=== PATIENT | male | born 1980 ===

== ENCOUNTER 2021-07-31 10:07 | Day surgery (SDC) | payer BC ==
[2021-07-30 10:18] VITALS: BMI 38.0
[~2021-07-31 10:07] MED LIST: HEPARIN SODIUM,PORCINE/PF 5,000 UNIT/0.5 ML SYRINGE SQ PRN; LACTATED RINGERS 1,000 ML IV SCH; MIDAZOLAM 2 MG/2 ML VIAL IV PRN; ONDANSETRON 4 MG/2 ML VIAL IVP ONE; SCOPOLAMINE 1.5MG/72HR PATCH TRANSDERM ONE; ceFAZolin 3 GM in SODIUM CHLORIDE 0.9% 100 ML IVPB PRN
[2021-07-31] MEDS ORDERED: LIDOCAINE 1% (10MG/ML) FOR IV START INTRADERMA ONE (10:57)
--- NOTE | 2021-07-31 11:05 | P.GSHP ---
History of Present Illness H&P Date: 07/31/21 CHIEF COMPLAINT: Cholecystitis HISTORY OF PRESENT ILLNESS: The patient is a 41-year-old male who presents with history of epigastric including right upper quadrant abdominal pain. He underwent diagnostic studies for the gallbladder. Separately his clinical picture was consistent with cholecystitis. Now he presents for surgical intervention. PAST MEDICAL HISTORY: Please see list PAST SURGICAL HISTORY: Please see list MEDICATIONS: Please see list ALLERGIES: Denies. SOCIAL HISTORY: No illicit drug use or recent tobacco use FAMILY HISTORY: Pertinent for gallbladder disease REVIEW OF ORGAN SYSTEMS: CONSTITUTIONAL: No reports of fevers or chills. HEENT: Denies any troubles with the vision or hearing. PHYSICAL EXAM: VITAL SIGNS: Afebrile vital signs stable GENERAL: Well-developed pleasant male in no acute distress. HEENT: No scleral icterus. Extraocular movements grossly intact. Moist buccal mucosa. NECK: Supple without lymphadenopathy. CHEST: Unlabored respirations. Equal bilateral excursions. CARDIOVASCULAR: Regular rate regular rhythm rhythm. Distal 2+ pulses. ABDOMEN: Soft, nondistended. Tender along the epigastrium and right upper quadrant. MUSCULOSKELETAL: No clubbing, cyanosis, or edema. NEURO : No focal or lateralizing signs. Cranial nerves II-12 within normal limits. PSYCH: Alert and oriented to person, place and time. SKIN: Well perfused. Good skin turgor. ASSESSMENT: 1. Epigastric and right upper quadrant abdominal pain 2. Chronic cholecystitis PLAN: 1. Will need a robotic cholecystectomy possible open. Benefits and risks were described. 2. Heparin for DVT prophylaxis 5000 units. 3. Antibiotic prophylaxis. Past Medical History Past Medical History: Hyperlipidemia, Hypertension, Sleep Apnea/CPAP/BIPAP History of Any Multi-Drug Resistant Organisms: None Reported Past Surgical History: Orthopedic Surgery Additional Past Surgical History / Comment(s): Back surgery with fusion. [place] teeth. Past Anesthesia/Blood Transfusion Reactions: No Reported Reaction Past Psychological History: No Psychological Hx Reported Smoking Status: Never smoker Past Alcohol Use History: Occasional Additional Past Alcohol Use History / Comment(s): Hx. of chewing tabacco. Has quit for several years. Past Drug Use History: None Reported - Past Family History Mother Family Medical History: No Reported History Medications and Allergies Home Medications Medication Instructions Recorded Confirmed Type Bisoprolol-Hctz 10-6.25 mg [Ziac 1 tab PO DAILY 07/30/21 07/30/21 History 10-6.25 MG] Omeprazole [PriLOSEC] 20 mg PO AC-BRKFST 07/30/21 07/30/21 History Rosuvastatin [Crestor] 10 mg PO HS 07/30/21 07/30/21 History Sulfamethox-Tmp 800-160Mg [Bactrim 1 tab PO BID 07/30/21 07/30/21 History DS 800-160 mg] lisinopriL 10 mg PO DAILY 07/30/21 07/30/21 History Allergies Allergy/AdvReac Type Severity Reaction Status Date / Time Corticosteroids Allergy Chorioretin Verified 07/30/21 10:21 (Glucocorticoids) opathy Surgical - Exam Vital Signs Temp Pulse Resp BP Pulse Ox 97 F L 55 L 20 132/77 97 07/31/21 10:55 07/31/21 10:55 07/31/21 10:55 07/31/21 10:55 07/31/21 10:55
[2021-07-31] MEDS ORDERED: GABAPENTIN 300 MG CAP PO PRN (11:06)
[2021-07-31] MEDS ORDERED: ACETAMINOPHEN TAB 500 MG TAB PO PRN (11:06)
[2021-07-31] MEDS ORDERED: MELOXICAM 7.5 MG TAB PO PRN (11:06)
[2021-07-31] MEDS ORDERED: TAMSULOSIN 0.4 MG CAP.ER.24H PO PRN (11:06)
[2021-07-31] MEDS ORDERED: INDOCYANINE GREEN 25 MG VIAL IV STA (11:07)
[2021-07-31 11:12] LABS: HCT 45.9 % (39.0-53.0); HGB 16.1 gm/dL (13.0-17.5); MCH 32.9 pg (25.0-35.0); MCHC 35.1 g/dL (31.0-37.0); MCV 93.7 fL (80.0-100.0); Mean Platelet Volume 7.8; Platelet Count 247 k/uL (150-450); RDW 12.5 % (11.5-15.5); WBC 6.1 k/uL (3.8-10.6)
[2021-07-31 11:22] LABS: ALT 24 U/L (4-49); AST 25 U/L (17-59); African American GFR (CKD) >90 (>60 ml/min/1.73 sqM); Alkaline Phosphatase 59 U/L (38-126); Anion Gap 10 mmol/L; Blood Urea Nitrogen 14 mg/dL (9-20); Calcium 9.4 mg/dL (8.4-10.2); Carbon Dioxide 23 mmol/L (22-30); Chloride 107 mmol/L (98-107); Glucose 98 mg/dL (74-99); Non-African American GFR(CKD) 79 (>60 ml/min/1.73 sqM); Potassium 4.5 mmol/L (3.5-5.1); Sodium 140 mmol/L (137-145); Total Protein 8.3 g/dL (6.3-8.2)
[2021-07-31] MEDS ORDERED: ROCURONIUM 10 MG/ML (5 ML VIAL) IV ONE (12:25)
[2021-07-31] MEDS ORDERED: NEOSTIGMINE 1 MG/ML 10 ML VIAL ONE (12:25)
[2021-07-31] MEDS ORDERED: fentaNYL (PF) 50 MCG/ML 2 ML AMP ONE (12:25)
[2021-07-31] MEDS ORDERED: HYDROmorphone (PF) 1 MG/ML ONE (12:25)
[2021-07-31] MEDS ORDERED: LIDOCAINE 1% INJ 10MG/ML (20 ML MDV) ONE (12:25)
[2021-07-31] MEDS ORDERED: PHENYLEPHRINE-0.9% NACL SYG 1,000 MCG/10 ML SYRINGE ONE (12:25)
[2021-07-31] MEDS ORDERED: MIDAZOLAM 2 MG/2 ML VIAL ONE (12:25)
[2021-07-31] MEDS ORDERED: SUCCINYLCHOLINE CHLORIDE VIAL 200 MG/10 ML VIAL IV ONE (12:25)
[2021-07-31] MEDS ORDERED: GLYCOPYRROLATE 0.2 MG/ML 2 ML VIAL ONE (12:25)
[2021-07-31] MEDS ORDERED: PROPOFOL 10 MG/ML 20 ML VIAL IV ONE (12:25)
[2021-07-31] MEDS ORDERED: BUPIVACAIN-EPI 0.25%-1:200,000 30 ML VIAL SQ ONE (12:52)
[2021-07-31] MEDS ORDERED: LACTATED RINGERS 1,000 ML IV ONE (13:25)
[2021-07-31 13:34] VITALS: TEMP 97.4
[2021-07-31] MEDS: HYDROmorphone 0.5 MG/0.5 ML SYRINGE IVP PRN ×3 (13:38→14:00)
[2021-07-31] MEDS ORDERED: KETOROLAC 15 MG/ML 1 ML VIAL IVP ONE (14:10)
--- NOTE | 2021-07-31 14:19 | P.OP ---
Date of Procedure: 07/31/21 Description of Procedure: SURGEON: JENNIFER COLON MD PREOPERATIVE DIAGNOSES: 1. Symptomatic gallstones 2. Right upper quadrant abdominal pain 3. Hypertensive heart disease 4. Morbid obesity due to excess calories, BMI 38.3 5. Hyperlipidemia 6. Obstructive sleep apnea POSTOPERATIVE DIAGNOSES: 1. Symptomatic gallstones 2. Right upper quadrant abdominal pain 3. Hypertensive heart disease 4. Morbid obesity due to excess calories, BMI 38.3 5. Hyperlipidemia 6. Obstructive sleep apnea 7. Gastritis OPERATION: 1. Robotic-assisted da Elicia Xi laparoscopic cholecystectomy, multiport with FIREFLY 2. Intraoperative esophagogastroduodenoscopy (see separate operative report) ESTIMATED BLOOD LOSS: 5 mL. SPECIMENS REMOVED: Gallbladder and antrum COMPLICATIONS: None. OPERATIVE FINDINGS: 1. Mild hepatomegaly INDICATIONS: The patient is a 41-year-old male who presents with symptomatic gallstones. Robotic assisted laparoscopic approach was described. Benefits and risks of the procedure including but not limited to bleeding, infection, injury to the biliary tree was described. Informed consent was obtained. DESCRIPTION OF PROCEDURE: Patient was brought to the operating room, placed in supine position. After general induction, the abdomen had been prepped and draped in standard sterile fashion. The robotic da Elicia XI system was primed. After a timeout protocol was performed, the patient had been prepped and draped in standard sterile fashion. The patient was injected with indocyanine green. A 5 mm 0 degrees laparoscopic trocar entry was performed along the left upper quadrant. The abdomen insufflated to 15 mmHg pressure which was tolerated well. Diagnostic laparoscopy demonstrated no injury to bowel viscera or mesentery. The liver surface was unremarkable. Next, two 8 mm robotic ports were placed along the right upper abdomen. The camera 8-mm port was maintained along the epigastrium. Another 8 mm port was placed along the left upper abdominal wall after exchanging the 5 mm port. Please note that the ports were placed at least 10 to 15 cm away from the target anatomy of the gallbladder. The robot was docked along the left lateral abdomen. The patient was repositioned in reverse Trendelenburg position. Using a grasper for arm 3, a grasper for arm 4, including hook cautery for arm 1, the robotic system was docked and primed as described. Instruments were interchanged by the resident care assistant including hook cautery, Bovie cautery and clip appliers. I had sat at the console. Next attention was brought to the infundibulum and cystic structures. The infundibulum and cystic duct were dissected free from surrounding tissues. The cystic duct was isolated. FIREFLY was used to identify the cystic artery and cystic structures. A critical view of safety was obtained. Large PLASTIC clips were used throughout the entire case. Using a clip maintenance mechanic 2nd shift, 2 clips were placed at the junction of the infundibulum and cystic duct. The cystic duct was divided between clips. Next, the cystic artery was similarly clipped and cauterized. Electro-Bovie cautery was used to remove the gallbladder from the hepatic fossa. Hemostasis was checked and found to be adequate. The robot was undocked. I re-scrubbed into the case. Using a 10 mm Endo Catch bag via the left upper quadrant incision, the specimen was removed from the abdominal cavity. All pneumoperitoneum instruments were evacuated from the abdominal cavity. The incisions were reapproximated using 4-0 Monocryl in an interrupted subcuticular fashion. Fascial defects were less than 8 mm in size. Please note along the trocar sites, local anesthetic was placed as a field block prior to insertion of all instruments. Liquid glue was applied to the skin. I went to the head of the bed to perform an intraoperative upper endoscopy. Please see separate operative report. At the end of the procedure needle, sponge, and instrument count had been verified correct by the surgical sales representative. The patient was transferred to postanesthesia care unit in stable condition. Intraoperative films were shared with the patient's family. Plan - Discharge Summary Discharge Rx Participant: Yes New Discharge Prescriptions: New Simethicone [Gas-X] 125 mg PO AC-TID PRN #20 capsule PRN Reason: Pain Ibuprofen [Motrin] 600 mg PO Q8HR PRN #30 tab PRN Reason: Pain Acetaminophen Tab [Tylenol Tab] 1,000 mg PO Q6HR PRN #30 tablet PRN Reason: Pain Continue Bisoprolol-Hctz 10-6.25 mg [Ziac 10-6.25 MG] 1 tab PO DAILY Sulfamethox-Tmp 800-160Mg [Bactrim DS 800-160 mg] 1 tab PO BID Rosuvastatin [Crestor] 10 mg PO HS Omeprazole [PriLOSEC] 20 mg PO AC-BRKFST lisinopriL 10 mg PO DAILY Discharge Medication List Bisoprolol-Hctz 10-6.25 mg [Ziac 10-6.25 MG] 1 tab PO DAILY 07/30/21 [History] Omeprazole [PriLOSEC] 20 mg PO AC-BRKFST 07/30/21 [History] Rosuvastatin [Crestor] 10 mg PO HS 07/30/21 [History] Sulfamethox-Tmp 800-160Mg [Bactrim DS 800-160 mg] 1 tab PO BID 07/30/21 [History] lisinopriL 10 mg PO DAILY 07/30/21 [History] Acetaminophen Tab [Tylenol Tab] 1,000 mg PO Q6HR PRN #30 tablet 07/31/21 [Rx] Ibuprofen [Motrin] 600 mg PO Q8HR PRN #30 tab 07/31/21 [Rx] Simethicone [Gas-X] 125 mg PO AC-TID PRN #20 capsule 07/31/21 [Rx] Follow up Appointment(s)/Referral(s): Jennifer Colon MD [STAFF PHYSICIAN] - 08/07/21 (Telehealth) Patient Instructions/Handouts: *[facility] - Laparoscopic Cholecystectomy Discharge Instructions, *[facility] - Managing Your Pain After Surgery Without Opioids, *[facility] - (Anesthesia) Discharge Instructions Outpatient Surgery, Low Fat Diet (DC) Discharge Disposition: HOME SELF-CARE
--- NOTE | 2021-07-31 14:21 | P.PCN ---
Date of Procedure: 07/31/21 Description of Procedure: PREOPERATIVE DIAGNOSIS: Gastroesophageal reflux disease. Morbid obesity. POSTOPERATIVE DIAGNOSIS: Morbid obesity. Gastritis. Gastroesophageal reflux disease. Foreign body OPERATION: Esophagogastroduodenoscopy with biopsies along antrum. SURGEON: Jennifer Colon MD ANESTHESIA: GETA. INDICATIONS: The patient is a 41-year-old male who presents with reflux disease. Benefits and risks of the procedure were described. Informed consent was obtained. DESCRIPTION: After completion of his cholecystectomy, I went to the head of the bed. An Olympus gastroscope was passed along the posterior oropharynx down to the distal esophagus where the squamocolumnar junction was encountered at 42 cm from the incisors. The stomach was entered and no bile reflux was found. Additional findings are listed below. Biopsies with cold forceps were obtained of the antrum. The first through third portion of the duodenum was examined and unremarkable. Retroflexion of the scope confirmed Hill grade 2 lower esophageal valve. The squamocolumnar junction demonstrated LA grade A erosive esophagitis. The stomach was desufflated. The patient tolerated the procedure well. FINDINGS: Squamocolumnar junction 42 cm from the incisors. Diaphragmatic hiatus at 42 cm. Foreign body within the stomach consistent with metal fragment from tooth filling Hill grade 2 lower esophageal valve. LA grade A erosive esophagitis. No active duodenitis. Chronic gastritis RECOMMENDATIONS: Upper endoscopy as needed.
[2021-07-31 14:45] VITALS: RESP 17
[2021-07-31 15:03] VITALS: BP 128/69; PULSE 60
== END 2021-07-31 16:27 | disposition home or self-care (01) ==
LOC: ORWHC2ENDO 10:07
PROVIDERS: ATTEND Surgery Plastic and Reconstructive Surgery
DX: K81.1 Chronic cholecystitis (principal); K29.50 Unspecified chronic gastritis without bleeding; K22.10 Ulcer of esophagus without bleeding; K21.9 Gastro-esophageal reflux disease without esophagitis; E78.5 Hyperlipidemia, unspecified; I10 Essential (primary) hypertension; G47.33 Obstructive sleep apnea (adult) (pediatric); T18.2XXA Foreign body in stomach, initial encounter; Z98.1 Arthrodesis status; Z98.890 Other specified postprocedural states; Z87.891 Personal history of nicotine dependence; Z79.899 Other long term (current) drug therapy; Z88.8 Allergy status to other drugs, medicaments and biological substances; E66.01 Morbid (severe) obesity due to excess calories; Z68.38 Body mass index [BMI] 38.0-38.9, adult
CPT/HCPCS: 88304; 88305; 80053; 85027; 43239; 47563; J2250; J0330; J2710; J0690; J2405; J2001; J3010; J1170 ×2; J1885; J2370; J2704; J1644